=== PATIENT | female | born 1990 | race Hispanic/Latino ===

== ENCOUNTER 2020-12-24 17:14 | Emergency (ER) | payer SELFPAY ==
[2020-12-24 18:14] VITALS: BP 130/75; PULSE 87; RESP 16; TEMP 36.4; O2SAT 99
--- NOTE | 2020-12-24 21:35 | PC.NURSE ---
First call to bring pt to room at [id number], no answer.
--- NOTE | 2020-12-24 21:56 | PC.NURSE ---
Pt called for second time at [id number] with no answer. Presumed pt walked out without being seen. Pt was triaged.
== END 2020-12-25 04:34 | disposition left against medical advice (07) ==
PROVIDERS: PCP Registered Nurse
DX: R25.9 Unspecified abnormal involuntary movements (principal)
CPT/HCPCS: 99199

== ENCOUNTER 2022-05-22 23:11 | Emergency (ER) | payer OTHER, SELFPAY ==
--- NOTE | ~2022-05-22 | XR_ITS ---
AP view of the pelvis and AP and lateral views of the left hip Clinical history: Pain Findings: No acute fracture or dislocation is seen. Osseous alignment is anatomic. Bilateral hip and SI joint spaces are preserved. Soft tissues are unremarkable. Impression: No significant abnormality is seen. Reviewed, dictated and finalized at location . Impression: No significant abnormality is seen.
--- NOTE | ~2022-05-22 | XR_ITS ---
Left Knee Technique: AP, lateral, and oblique views were obtained. Clinical History: Pain Findings: No fracture or dislocation is seen. Osseous alignment is anatomic. Joint spaces are preserv ed without degenerative or erosive change. Soft tissues are unremarkable. No joint effusion is seen. Impression: Unremarkable left knee radiographs. Reviewed, dictated and finalized at location . Impression: Unremarkable left knee radiographs.
[2022-05-22 23:15] VITALS: BP 118/68; PULSE 88; RESP 18; TEMP 36.1; O2SAT 100
[2022-05-23 02:06] VITALS: BP 114/76; PULSE 66; RESP 14; O2SAT 100
[2022-05-23 02:55] VITALS: BP 126/78; PULSE 86; RESP 14; O2SAT 100
[2022-05-23 03:10] LABS: Basophils Absolute Auto 0.1 K/mm3 (0.0-0.1); Basophils Percent Auto 0.7 % (0.2-1.2); Eosinophils Absolute Auto 0.3 K/mm3 (0-0.3); Eosinophils Percent Auto 2.4 % (0-4.4); Hematocrit 35.4 % (37.0-47.0); Hemoglobin 10.9 g/dL (12.0-15.0); Immature Granulocyte Absolute 0.04 K/mm3 (0.00-0.031); Immature Granulocyte Percent A 0.3 % (0-0.5); Lymphocytes Absolute Auto 3.34 K/mm3 (0.9-3.2); Mean Corpuscular HGB Conc 30.8 g/dl (32-36); Mean Corpuscular Hemoglobin 24.2 pg (26-34); Mean Corpuscular Volume 78.7 fl (80-100); Mean Platelet Volume 9.2 fl (7.4-10.4); Monocytes Absolute Auto 0.8 K/mm3 (0.1-0.6); Monocytes Percent Auto 6.7 % (2.6-8.5); Neutrophils Absolute Auto 7.4 K/mm3 (1.3-6.7); Neutrophils Percent Auto 61.9 % (45.5-73.1); Platelet Count Result 391 k/mm3 (150-375); White Blood Count 11.9 K/mm3 (4.5-10.0)
[2022-05-23 03:28] LABS: Alanine Aminotransferase 17 U/L (6-35); Albumin Level 4.3 g/dL (3.5-5.1); Alkaline Phosphatase 88 U/L (38-126); Anion Gap 9 mmol/L (8-16); Aspartate Amino Transferase 21 U/L (14-36); Bilirubin,Total 0.5 mg/dL (0.2-1.3); Blood Urea Nitrogen 12 mg/dL (7-17); Calcium 8.6 mg/dL (8.4-10.2); Carbon Dioxide 24 mmol/L (22-30); Chloride 104 mmol/L (98-107); Estimated CRCL calculation 155 ml/min; Estimated Glomerular Filt Rate > 60; Glucose 182 mg/dL (65-110); Potassium 4.6 mmol/L (3.4-5.0); Sodium 137 mmol/L (137-145)
[2022-05-23 03:42] LABS: Prothrombin Time 12.5 Seconds (11.1-14.7)
[2022-05-23 03:43] LABS: Partial Thromboplastin Time 29.8 SECONDS (22.3-36.8)
[2022-05-23 03:57] LABS: D Dimer < 0.27 ug/mL (<0.48)
--- NOTE | 2022-05-23 04:08 | ED.GENADULT ---
HPI - General Adult General Chief complaint: Extremity Problem,Nontraumatic Stated complaint: LEFT FOOT PAIN Time Seen by Provider: 05/23/22 01:39 History of Present Illness HPI narrative: Patient is a 31-year-old female who presents the emergency department with chief complaint of left lower extremity pain. Patient reports that today she started having pain in her left thigh that then radiates down into her left leg to her foot. Patient reports no trauma reports that she is concerned that she may have a blood clot patient states that pain is worse with ambulation and improved with rest. Patient states that she had no chest pain no shortness of breath denies fever denies redness. Related Data Allergies Allergy/AdvReac Type Severity Reaction Status Date / Time No Known Allergies Allergy Mild Unverified 09/18/18 14:50 Review of Systems Review of Systems: A 10 system review of systems was completed on the patient and is negative except for what is stated in the HPI. Nursing and ancillary documentation was reviewed. Exam Narrative: GENERAL: Well-appearing, well-nourished, and in no acute distress. HEAD: Normocephalic, atraumatic. EYES: PERRLA and EOMI. ENT: Nares clear, no rhinorrhea or epistaxis. Mucous membranes moist. NECK: Supple. CHEST: Clear to auscultation. No respiratory distress. HEART: Regular rate and rhythm. No murmur heard. Normal peripheral pulses. ABDOMEN: Soft, nontender, nondistended, normal active bowel sounds. EXTREMITIES: Normal range of motion. No edema. There is tenderness to palpation in the left thigh and left calf, there is no fluctuance there is no erythema, intact dorsalis pedis pulse SKIN: Warm, dry, no rash. NEURO: No focal deficits. Alert and oriented x3. PSYCH: Normal mood and affect. Course Vital Signs Vital signs: Vital Signs Temperature 36.1 C L 05/22/22 23:15 Pulse Rate 88 05/22/22 23:15 Respiratory Rate 18 05/22/22 23:15 Blood Pressure 118/68 05/22/22 23:15 Pulse Oximetry 100 05/22/22 23:15 Oxygen Delivery Room Air 05/22/22 23:15 Temperature 36.1 C L 05/22/22 23:15 Pulse Rate 86 05/23/22 02:55 Respiratory Rate 14 05/23/22 02:55 Blood Pressure 126/78 05/23/22 02:55 Pulse Oximetry 100 05/23/22 02:55 Oxygen Delivery Room Air 05/22/22 23:15 Medical Decision Making MDM Narrative Medical decision making narrative: Differential diagnosis includes DVT, muscle strain, cellulitis, Laboratory studies were obtained which showed a white blood cell count of 11.9 electrolytes are within normal limits coags were normal and D-dimer was less than 0.27. Plain film x-rays were obtained of the left knee and the left hip that showed no evidence of fracture Vital Signs Vital Signs: Vital Signs Temperature 36.1 C L 05/22/22 23:15 Pulse Rate 88 05/22/22 23:15 Respiratory Rate 18 05/22/22 23:15 Blood Pressure 118/68 05/22/22 23:15 Pulse Oximetry 100 05/22/22 23:15 Oxygen Delivery Room Air 05/22/22 23:15 Temperature 36.1 C L 05/22/22 23:15 Pulse Rate 86 05/23/22 02:55 Respiratory Rate 14 05/23/22 02:55 Blood Pressure 126/78 05/23/22 02:55 Pulse Oximetry 100 05/23/22 02:55 Oxygen Delivery Room Air 05/22/22 23:15 Lab Data 05/23/22 02:44 05/23/22 02:44 Labs: Lab Results 05/23/22 05/23/22 05/23/22 Range/Units 02:44 02:44 02:44 WBC 11.9 H (4.5-10.0) K/mm3 RBC 4.50 (4.2-5.4) M/mm3 Hgb 10.9 L (12.0-15.0) g/dL Hct 35.4 L (37.0-47.0) % MCV 78.7 L (80-100) fl MCH 24.2 L (26-34) pg MCHC 30.8 L (32-36) g/dl RDW 17.0 H (11.5-14.5) % Plt Count 391 H (150-375) k/mm3 MPV 9.2 (7.4-10.4) fl Immature Gran % (Auto) 0.3 (0-0.5) % Neut % (Auto) 61.9 (45.5-73.1) % Lymph % (Auto) 28.0 (18.3-44.2) % Barton % (Auto) 6.7 (2.6-8.5) % Eos % (Auto) 2.4 (0-4.4) % Baso % (Auto) 0.7 (0.2-1.2) % Lymph # (Auto) 3.34 H
[2022-05-23 04:11] VITALS: BP 122/78; PULSE 80; RESP 16; O2SAT 99
== END 2022-05-23 04:36 | disposition home or self-care (01) ==
PROVIDERS: Emergency Provider Emergency Medicine; PCP Registered Nurse
DX: M79.605 Pain in left leg (principal)
CPT/HCPCS: 36415; 73502; 73562; 80053; 81025; 85025; 85380; 85610; 85730; 99284

== ENCOUNTER 2022-12-15 15:02 | Emergency (ER) | payer OTHER, SELFPAY ==
[2022-12-15 15:04] VITALS: BP 132/78; PULSE 72; RESP 17; TEMP 36.8; O2SAT 98
[2022-12-15 15:13] LABS: Glucose Point of Care 133 mg/dl (65-105)
--- NOTE | 2022-12-15 15:22 | ED.GENADULT ---
HPI - General Adult General Chief complaint: Recheck/Abnormal Lab/Rx <Tran Carlson HIGH SCHOOL ASSISTANT FOOTBALL COACH - Last Filed: 12/15/22 15:27> Stated complaint: nausea, abnormal blood glucose <Tran Carlson HIGH SCHOOL ASSISTANT FOOTBALL COACH - Last Filed: 12/15/22 15:27> Time Seen by Provider: 12/15/22 17:34 <Tran Coronel June HIGH SCHOOL ASSISTANT FOOTBALL COACH - Last Filed: 12/15/22 15:27> History of Present Illness HPI narrative: Cathy Yu is a 32 y/o Iraqi speaking female through the director of people she reports of having nausea/vomiting for 2 weeks, she last vomited last night, she was able to keep a few chips down today but still not feeling well with a lot of nausea/ She also reports of sore throat for one week / feeling fatigue/ hot and cold / denies any abdominal pain. Denies changes to urine / Last BM was this morning and was normal Bilateral tonsillar edema noted with exudate /lung sounds clear/ no abdominal pain with palpation <Tran Coronel June, HIGH SCHOOL ASSISTANT FOOTBALL COACH - Last Filed: 12/15/22 15:27> Cathy Yu is a 32 y/o Iraqi speaking female. [employer] director of people/[facility] #[id number] is used for my interaction: She reports of having nausea and a sore throat for 2 weeks. She feels fatigued. Denies fever but does state has felt cold and warm off and on. No cough. Denies any abdominal pain. Points to back of throat and neck bilaterally. Having numbness in her hands. Home medications: glyburide, metformin, Ozempic, and niacin (though hasn't taken the latter for 2 weeks because the pharmacy has been out of stock) Only allergies are pollen/weather At triage using director of people prior to my interaction: Denies changes to urine. Last BM was this morning and was normal. She last vomited last night, she was able to keep a few chips down today <Patrica Barron MD - Last Filed: 12/16/22 08:19> Related Data Allergies/adverse reactions: Allergies Allergy/AdvReac Type Severity Reaction Status Date / Time No Known Allergies Allergy Mild Unverified 09/18/18 14:50 <Tran Carlson APRN - Last Filed: 12/15/22 15:27> PMFSH Past Medical History Medical History: Medical History Diabetes <Tran Carlson APRN - Last Filed: 12/15/22 15:27> Surgical History Surgical History: Surgical History History of delivery <Tran Carlson APRN - Last Filed: 12/15/22 15:27> Family History Family History: Family History Father Diabetes mellitus Mother Diabetes mellitus <Tran Carlson APRN - Last Filed: 12/15/22 15:27> Social History Social History: Social History (Updated 12/16/22 @ 08:09 by Patrica Barron MD) Smoking status: Never smoker Alcohol intake: never Substance use: never <Tran Carlson APRN - Last Filed: 12/15/22 15:27> Exam Const: General: no acute distress and alert; No confusion or diaphoretic <Patrica Barron MD - Last Filed: 12/16/22 08:19> Nutritional Appearance: well nourished and obese <Patrica Barron MD - Last Filed: 12/16/22 08:19> Orientation/consciousness: patient oriented x3 <Patrica Barron MD - Last Filed: 12/16/22 08:19> Limitations: language barrier (interpretive services used as above; ESL; primarily Iraqi speaking) <Patrica Barron MD - Last Filed: 12/16/22 08:19> HENMT: Head: normal to inspection, no contusions, no hematomas and no lacerations <Patrica Barron MD - Last Filed: 12/16/22 08:19> Face/Nose/Sinus: Normal external nose present <Patrica Barron MD - Last Filed: 12/16/22 08:19> Face and sinus: normal facial exam <Patrica Barron MD - Last Filed: 12/16/22 08:19> Mouth: Yes lip normal and Yes moist mucous membranes <Patrica Barron MD - Last Filed: 12/16/22 08:19> Throat: uvula midline <Patrica Barron MD - Last Filed: 12/16/22 08:19> Other: gross auditory acuity intact. P
[2022-12-15 16:20] LABS: Basophils Absolute Auto 0.1 K/mm3 (0.0-0.1); Basophils Percent Auto 0.5 % (0.2-1.2); Eosinophils Absolute Auto 0.2 K/mm3 (0-0.3); Eosinophils Percent Auto 0.9 % (0-4.4); Hemoglobin 11.1 g/dL (12.0-15.0); Immature Granulocyte Percent A 0.5 % (0-0.5); Lymphocytes Absolute Auto 1.62 K/mm3 (0.9-3.2); Lymphocytes Percent Auto 8.3 % (18.3-44.2); Mean Corpuscular HGB Conc 30.8 g/dl (32-36); Mean Corpuscular Hemoglobin 24.9 pg (26-34); Mean Corpuscular Volume 80.9 fl (80-100); Monocytes Absolute Auto 1.1 K/mm3 (0.1-0.6); Monocytes Percent Auto 5.6 % (2.6-8.5); Neutrophils Absolute Auto 16.4 K/mm3 (1.3-6.7); Neutrophils Percent Auto 84.2 % (45.5-73.1); Platelet Count Result 350 k/mm3 (150-375); Red Blood Count 4.45 M/mm3 (4.2-5.4); White Blood Count 19.4 K/mm3 (4.5-10.0)
[2022-12-15 16:25] LABS: Appearance Urine Clear (Clear); Bacteria Urine Rare /hpf; Bilirubin Urine Negative (Negative); Blood Urine Negative (Negative); Color Urine Yellow (Yellow); Glucose Urine UA 2+ mg/dL (Negative); Ketones Urine Trace mg/dL (Negative); Leukocyte Esterase Ur Negative LEU/UL (Negative); Nitrate Urine Positive (Negative); Non Pathogenic Casts 0-2; Protein Urine Negative (Negative); RBC Urine 0-2 /hpf (0-2); Specific Grav Ur 1.025 (1.001-1.035); Squamous Epithelial Cell Urine Occasional /hpf (Few); Urobilinogen Urine 0.2 mg/dL (<2.0); WBC Urine 0-5 /hpf
[2022-12-15 16:31] LABS: Alanine Aminotransferase 14 U/L (6-35); Albumin Level 4.2 g/dL (3.5-5.1); Alkaline Phosphatase 72 U/L (38-126); Anion Gap 8 mmol/L (8-16); Aspartate Amino Transferase 16 U/L (14-36); Bilirubin,Total 0.5 mg/dL (0.2-1.3); Blood Urea Nitrogen 11 mg/dL (7-17); Calcium 9.1 mg/dL (8.4-10.2); Carbon Dioxide 22 mmol/L (22-30); Chloride 104 mmol/L (98-107); Estimated CRCL calculation 183 ml/min; Estimated Glomerular Filt Rate > 60; Glucose 145 mg/dL (65-110); Potassium 3.7 mmol/L (3.4-5.0); Sodium 134 mmol/L (137-145)
[2022-12-15 16:35] LABS: Add Urine Microscopic? YES
[2022-12-15 16:43] LABS: Monoscreen Negative (Negative); Negative Monotest Control Negative (Negative); Positive Monotest Control Positive (Positive); Strep Group A RT-PCR DETECTED (Negative)
[2022-12-15 16:58] LABS: Influenza A QL RT-PCR Negative (Negative); Influenza B QL RT-PCR Negative (Negative); RSV RNA, RT-PCR Negative (Negative); SARS-CoV-2 RNA PCR Negative (Negative)
[2022-12-15] MEDS: PENICILLIN V POTASSIUM 250 MG TABLET 500 MG PO (18:49)
[2022-12-15] MEDS: DEXAMETHASONE 2 MG TABLET 10 MG PO (18:50)
== END 2022-12-15 18:30 | disposition home or self-care (01) ==
PROVIDERS: Nurse Practitioner Family; Emergency Provider Student in an Organized Health Care Education/Training Program; PCP Registered Nurse
DX: J02.0 Streptococcal pharyngitis (principal); Z20.822 Contact with and (suspected) exposure to COVID-19; E11.9 Type 2 diabetes mellitus without complications; Z79.84 Long term (current) use of oral hypoglycemic drugs; Z79.85 Long-term (current) use of injectable non-insulin antidiabetic drugs
CPT/HCPCS: 80053; 81001; 81025; 82948; 85025; 86308; 87637; 87651; 99283; A9270; J8540

== ENCOUNTER 2025-01-20 16:46 | Emergency (ER) | payer OTHER, SELFPAY ==
--- OUTSIDE RECORDS SUMMARY | 2025-01-20 16:48 | XMS_ITS | Clinical Summary ---
Author Organization [facility] Address [address] [place] [address] Care Team Providers Care Distance Learning Unit Leader Name Role Phone No, Physician Primary Care Provider [phone] Allergies No known active allergies Medications atorvastatin (LIPITOR) 20 mg tablet Take 20 mg by mouth nightly 2 Active fluticasone propionate (FLONASE) 50 mcg/actuation nasal spray INSTILL ONE SPRAY IN EACH NOSTRIL EVERY DAY FOR ALLERGIES 2 Active glyBURIDE (DIABETA) 2.5 mg tablet TAKE ONE TABLET BY MOUTH TWO TIMES A DAY FOR DIABETES 2 Active metFORMIN (GLUCOPHAGE) 1,000 mg tablet TAKE ONE TABLET BY MOUTH TWO TIMES A DAY FOR DIABETES 2 Active montelukast (SINGULAIR) 10 mg tablet TAKE ONE TABLET BY MOUTH EVERY DAY FOR BREATHING 2 Active Ozempic 0.25 mg or 0.5 mg(2 mg/1.5 mL) pen injector injection INJECT 0.5MG UNDER THE SKIN EVERY WEEK 2 Active loratadine (CLARITIN) 10 mg tablet TAKE ONE TABLET BY MOUTH EVERY DAY FOR ALLERGIES 2 Active HYDROcodone-acetam inophen (NORCO) 5-325 mg per tabletIndications: Pain Take 1 tablet by mouth every 6 (six) hours as needed for pain 10 tablet 2 Active levonorgestreL (PLAN B ONE-STEP) tabletIndications: Postcoital Contraception Take 1 tablet (1.5 mg total) by mouth once for 1 dose 1 tablet 2 Active Hospital, Clinic, or Other Facility Administered Medication Ordered Dose Route Frequency Start Date End Date Status etonogestreL (NEXPLANON) implant 68 mgIndications:Pregna ncy Contraception 68 mg subderm Continuous (implanted device) 01/29/2022 01/28/2025 Active Active Problems No known active problems Resolved Problems Problem Noted Date Diagnosed Date Resolved Date Foreign body of left upper arm 01/09/2022 01/29/2022 Overview (01/09/2022): Added automatically from request for surgery [id number] Immunizations Immunization Administration Dates Next Due Tdap 09/07/2017 Surgical History Surgery Date Site/Laterality Comments OTHER SURGICAL HISTORY 01/21/2022 Left contraceptive arm implant removal performed by plastic surgery Family History Medical History Relation Name Comments Diabetes Father Diabetes Mother Relation Name Status Comments Father Mother Social History Tobacco Use Types Packs/Day Years Used Date Smoking Tobacco: Never Tobacco Cessation:Counseling Given: Not Answered AUDIT-C Answer Date Recorded Q1: How often do you have a drink containing alcohol? Never 01/21/2022 Q2: How many drinks containi ng alcohol do you have on a typical day when you are drinking? Patient does not drink Q3: How often do you have si x or more drinks on one occasion? Never 01/21/2022 Comments No Sex and Gender Information Value Date Recorded Sex Assigned at Not on file Legal Sex Female 9:01 PM DEBT COLLECTOR Gender Identity Female 10/02/2021 10:34 AM CDT Sexual Orientation Not on file Obstetrics History Para Term AB IAB SAB Ectopic Multiple Livin g Live Births 3 3 2 1 3 3 Date Outcome GA Total Labor Labor/2nd/3rd Weight Sex Type Anes PTL Cari A1 A5 Name Clin 2010 Term 40w 0d 3.033 kg (6 lb 11 oz) M Vag-S pont Livin g 2013 35w 2d 2.722 kg (6 lb) M CS-LT ranv Livin g Delivery Location:[facility] 2017 Term 39w 1d 0h 05m 0h 05m 2.25 kg (4 lb 15.4 oz) M Vag-S pont Epidur al N Livin g 7 9 DINESH EZ,BAB Y BOY FRANTZ Ritter MD Complications:None,Type 2 di abetes mellitus without complication Delivery Location:[facility] Last Filed Vital Signs Vital Sign Reading Time Taken Comments Blood Pressure 123/83 01/29/2022 10:42 AM DEBT COLLECTOR Pulse 85 01/21/2022 5:30 PM DEBT COLLECTOR Temperature 37 C (98.6 F) 01/21/2022 12:48 PM DEBT COLLECTOR Respiratory Rate 14 01/21/2022 5:30 PM DEBT COLLECTOR Oxygen Saturation 100% 01/21/2022 5:30 PM DEBT COLLECTOR Inhaled Oxygen Concentration - - Weight 109.8 kg (242 lb) 01/29/2022 10:42 AM DEBT COLLECTOR Height 160 cm (5' 3) 01/29/2022 10:42 AM DEBT COLLECTOR Body Mass Index 42.87 01/29/2022 10:42 AM DEBT COLLECTOR Plan of Treatment Health Maintenance Due Date Last Done Comments Depression Screening 1989 Hepatitis C Screening 1989 Varicella Vaccines (1 of 2 - 13+ 2-dose series) 2002 Hepatitis B Screening 09/25/2007 Regular Well Visit/Exam 18-64 09/25/2007 HPV Vaccines (1 - 3-dose SCD M series) 2016 Cervical Cancer Screening 01/04/2019 01/04/2018 Influenza Vaccine (#1) 2024 DTaP/Tdap/Td Vaccine (2 - Td or Tdap) 09/08/2027 09/07/2017 Pneumococcal vaccine <65 Aged Out No longer eligible based on patient's age to complete this topic Medical Devices Explanted Type Area [employer] Certified Internetwork Expert Device Identifier Shelf Expiration Date Model / Serial / Lot Nexplanon Explanted:Qty: 1 on 01/21/2022 by Aury Madison MD at [facility] Other - see comments Left: Arm Other Description:NEXPLANON IMPLAN T. IMPLANTED 3 YEARS AGO, SEE CHART REVIEW. Insurance [facility] Care Teams Distance Learning Unit Leader Relationship Specialty Start Date End Date No, Physician PCP - General 10/23/21
[2025-01-20 16:51] VITALS: BP 124/69; PULSE 84; RESP 20; TEMP 36.8; O2SAT 100
--- NOTE | 2025-01-20 17:01 | ED.WOUNDLAC ---
HPI - Wound/Laceration General Chief Complaint: Wound/Laceration Stated Complaint: knife fell on L foot at work Time Seen by Provider: 01/20/25 17:00 Source: patient Mode of arrival: ambulatory Limitations: no limitations History of Present Illness HPI narrative: Patient is a 34-year-old female who presents the ED with report of a laceration to her left foot. Patient reports she was at work today and a kitchen knife accidentally dropped on to her left foot. Sustained small laceration to the dorsal aspect of her left foot. Denies significant pain. Denies numbness. States she was concerned as she is a diabetic and prompted here for further evaluation. Reports tetanus up-to-date, she believes 1 year ago. States it is definitely within the last 10 years. Denies any other injuries. Related Data Allergies Allergy/AdvReac Type Severity Reaction Status Date / Time No Known Allergies Allergy Mild Unverified 09/18/18 14:50 Review of Systems Review of Systems: All systems reviewed & are unremarkable except as noted in HPI. All systems reviewed & are unremarkable except as noted in HPI and below PMFSH Past Medical History Medical History Diabetes Surgical History Surgical History History of delivery Family History Family History Father Diabetes mellitus Mother Diabetes mellitus Social History Social History Smoking status: Never smoker Alcohol intake: never Substance use: never Exam Narrative: GENERAL: Well appearing, well-nourished, non-toxic, in no acute distress. HEAD: Normocephalic, atraumatic. RESPIRATORY: Airway patent, respirations nonlabored. CARDIOVASCULAR: Regular rate and rhythm. Pedal pulses intact MUSCULOSKELETAL: Moves all extremities. No gross deformities. SKIN: Warm, dry, normal color. 0.5cm linear superficial laceration to dorsal aspect of L medial foot, no active bleeding. Sensation intact throughout foot. NEURO: A&O X3. Speech clear. Cranial nerves II-XII grossly intact. Steady gait. No ataxic movements. PSYCHIATRIC: Appropriate mood and affect. Normal interaction. Course Vital Signs Vital signs: Vital Signs Temperature 98.2 F 01/20/25 16:51 Pulse Rate 84 01/20/25 16:51 Respiratory Rate 20 01/20/25 16:51 Blood Pressure 124/69 01/20/25 16:51 Pulse Oximetry 100 01/20/25 16:51 Oxygen Delivery Room Air 01/20/25 16:51 Temperature 98.2 F 01/20/25 16:51 Pulse Rate 84 01/20/25 16:51 Respiratory Rate 20 01/20/25 16:51 Blood Pressure 124/69 01/20/25 16:51 Pulse Oximetry 100 01/20/25 16:51 Oxygen Delivery Room Air 01/20/25 16:51 MDM MDM Narrative Medical decision making narrative: Patient was superficial laceration to foot. Does not require repair. Steri-Strips and bandage placed. Tetanus up-to-date. Neurovascularly intact otherwise. Patient was concerned as she is a diabetic. Provided education as to signs and symptoms of infection and what to watch out for, but advised antibiotics not indicated for simple laceration at this time. Stable for discharge. Given return precautions. Discharged in stable condition. Differential Diagnosis Differential Diagnosis: Foot fracture, foot laceration, foot sprain, abrasion Medical Records I have reviewed the following patient records and this information was taken into consideration when formulating the assessment and plan.: previous labs, previous ER visits, previous hospitalizations and previous clinic visits Discharge Plan Discharge Clinical Impression: Superficial laceration of left foot Patient Disposition: Home Condition: Stable Instructions: Antibiotic Form, Laceration (ED), Skin Adhesive Strips (ED) Additional Instructions: Allow Steri-Strips to fall off on their own over the next few days. You may take Tylenol/ibuprofen as needed for pain. Follow-up with your primary care doctor for further evaluation if needed. Return to the ED if you experience worsening or severe pain, recurrent bleeding, recurrent injury, redness streaking up or down foot, warmth around the wound, pus-like drainage from the wound, fevers, or any other symptoms of concern. Patient Language: Kazakh Prescriptions: No Action ibuprofen 800 mg tablet 800 mg PO TID PRN (Reason: pain) Qty: 30 0RF penicillin V potassium 500 mg tablet See Rx Instructions .ROUTE .COMPLEX 10 Days Qty: 40 0RF Rx Instructions: 500 mg orally every 6 hours for 10 days Follow-up/Referrals: Miller,CATRACHO Hernandez [Primary Care Provider] Time of Disposition: 17:03
--- NOTE | 2025-01-20 17:01 | PC.NURSE ---
ERP in triage, competing a MSE. ERP cleaning wound and applying bandage.
--- OUTSIDE RECORDS SUMMARY | 2025-01-20 17:22 | XMS_ITS | Clinical Summary ---
Author Organization [email or web address] Address [address] [place] [address] Care Team Providers Care Vet Assistant Name Role Phone No, Physician Primary Care Provider [phone] Allergies No known active allergies Medications atorvastatin [...] (01/09/2022): Added automatically from request for surgery [id number] Immunizations Immunization Administration Dates Next Due Tdap [...] on file Legal Sex Female 9:01 PM ARMY RANGER Gender Identity Female 10/02/2021 10:34 AM CDT [...] lb) M CS-LT ranv Livin g Delivery Location:[facility] 2017 Term 39w 1d 0h 05m 0h 05m 2.25 kg (4 lb 15.4 oz) M Vag-S pont Epidur al N Livin g 7 9 DINESH EZ,BAB Y BOY FRANTZ Ritter MD Complications:None,Type 2 di abetes mellitus without complication Delivery Location:[facility] Last Filed Vital Signs Vital Sign Reading Time Taken Comments Blood Pressure 123/83 01/29/2022 10:42 AM ARMY RANGER Pulse 85 01/21/2022 5:30 PM ARMY RANGER Temperature 37 C (98.6 F) 01/21/2022 12:48 PM ARMY RANGER Respiratory Rate 14 01/21/2022 5:30 PM ARMY RANGER Oxygen Saturation 100% 01/21/2022 5:30 PM ARMY RANGER Inhaled Oxygen Concentration - - Weight 109.8 kg (242 lb) 01/29/2022 10:42 AM ARMY RANGER Height 160 cm (5' 3) 01/29/2022 10:42 AM ARMY RANGER Body Mass Index 42.87 01/29/2022 10:42 AM ARMY RANGER Plan of Treatment Health Maintenance Due Date [...] this topic Medical Devices Explanted Type Area Supply Chain Generalist Device Identifier Shelf Expiration Date Model / Serial / Lot Nexplanon Explanted:Qty: 1 on 01/21/2022 by Aury Madison MD at [facility] Other - see comments Left: Arm Other Description:NEXPLANON IMPLAN T. IMPLANTED 3 YEARS AGO, SEE CHART REVIEW. Insurance [facility] Care Teams Vet Assistant Relationship Specialty Start Date End Date No, Physician PCP - General 10/23/21
== END 2025-01-20 17:35 | disposition home or self-care (01) ==
LOC: ANHED 17:21
PROVIDERS: Emergency Provider Physician Assistant; PCP Registered Nurse
DX: S91.312A Laceration without foreign body, left foot, initial encounter (principal); E11.9 Type 2 diabetes mellitus without complications; W26.0XXA Contact with knife, initial encounter; W20.8XXA Other cause of strike by thrown, projected or falling object, initial encounter
CPT/HCPCS: 99282